=== PATIENT | female | born 1945 | race Caucasian/White ===

== ENCOUNTER 2021-12-10 20:25 | Observation (INO) | payer MEDICARE, OTHER ==
[~2021-12-10] VITALS: Ht 170.2 cm; Wt 61.0 kg
[~2021-12-10 20:25] MED LIST: AMLODIPINE5 MG PO; ASPIRIN LOW DOS81 M2 PO; CALCIUM 600+D31 TA1 PO; CRESTOR5 MG PO; LOSARTAN POTASS50 MG PO; VITAMIN D31000 UNI1 PO; [UNRECOGNIZED DRUG - CODE] PO
[2021-12-10 21:03] LABS: IMMATURE GRANULOCYTES 0.2 % (0.0-5.0); MEAN CELL VOLUME 102.9 fL CALC (80.0-100.0); MEAN CORPUSCULAR HGB 33.4 pG CALC (26.0-32.0); MEAN CORPUSCULAR HGB CONC 32.5 g/dL CAL (32.0-36.0); NEUT# 3.18 thou/uL (2.00-7.15); RED BLOOD COUNT 3.11 mill/uL (4.20-5.60); RED CELL DISTRI WIDTH 12.3 % (11.5-15.5)
[2021-12-10 21:09] LABS: HEMOGLOBIN 10.4 g/dl (12.0-16.0)
[2021-12-10 21:21] LABS: ALBUMIN 4.3 g/dL (3.2-5.0); ALKALINE PHOSPHATASE 63 u/l (38-126); AMYLASE 142 u/l (30-110); ANION GAP 13 (6-22 (CALC)); BILIRUBIN, TOTAL 0.3 mg/dL (0.0-1.4); BUN 26 mg/dL (8-23); BUN/CREATININE RATIO 16 (12-20 (CALC)); CARBON DIOXIDE 23 mmol/l (22-30); CHLORIDE 109 mmol/l (95-108); CREATININE 1.6 mg/dL (0.5-1.0); ETHYL ALCOHOL 0 mg/dl (0-30); GFR FOR AFR.AMER. 38 ML/MIN (>=60 (CALC)); GFR OTHER RACES 31 ML/MIN (>=60 (CALC)); LIPASE 373 u/l (23-300); MAGNESIUM 2.1 mg/dL (1.6-2.3); POTASSIUM 3.8 mmol/l (3.5-5.1); SGOT/AST 27 u/l (9-36); SODIUM 141 mmol/l (137-146); TOTAL PROTEIN 6.8 g/dL (6.3-8.2)
[2021-12-10 21:24] LABS: ACT PARTIAL THROMBO TIME 18.5 SECONDS (20.0-32.5); INTERNATIONAL NORMALIZED RATIO 0.9 RATIO (0.7-1.3); PROTHROMBIN TIME 9.8 SECONDS (9.0-12.5)
[2021-12-10 21:31] VITALS: BP 127/81
[2021-12-10 23:39] VITALS: BP 134/64
[2021-12-11] VITALS: BP 125/56
[2021-12-11 00:32] LABS: URINE BILIRUBIN - DIPSTICK NEGATIVE (NEGATIVE); URINE BLOOD DIPSTICK NEGATIVE (NEGATIVE); URINE COLOR YELLOW; URINE GLUCOSE - DIPSTICK NEGATIVE (NEGATIVE); URINE KETONE TRACE mg/dL (NEGATIVE); URINE LEUK ESTERASE NEGATIVE (NEGATIVE); URINE NITRITE - DIPSTICK NEGATIVE (Negative); URINE PH 6.5 (4.5-8.0); URINE PROTEIN - DIPSTICK NEGATIVE (NEG-TRACE); URINE UROBILINOGEN - DIPSTICK 0.2 E.U./dL (0.2)
[2021-12-11 00:45] VITALS: BP 128/68
[2021-12-11 05:01] VITALS: BP 124/53
[2021-12-11 05:23] LABS: HEMATOCRIT 33.9 % (37.0-47.0); IMMATURE GRANULOCYTES 0.3 % (0.0-5.0); MEAN CELL VOLUME 103.7 fL CALC (80.0-100.0); MEAN CORPUSCULAR HGB 33.6 pG CALC (26.0-32.0); MEAN CORPUSCULAR HGB CONC 32.4 g/dL CAL (32.0-36.0); NEUT# 4.68 thou/uL (2.00-7.15); RED BLOOD COUNT 3.27 mill/uL (4.20-5.60); RED CELL DISTRI WIDTH 12.4 % (11.5-15.5)
[2021-12-11 05:46] LABS: ALBUMIN 3.6 g/dL (3.2-5.0); BILIRUBIN, TOTAL 0.3 mg/dL (0.0-1.4); CHOLESTEROL HDL RATIO 3.1 (<4.4 (CALC)); CREATININE 1.5 mg/dL (0.5-1.0); MAGNESIUM 2.1 mg/dL (1.6-2.3); POTASSIUM 4.7 mmol/l (3.5-5.1)
[2021-12-11 06:38] VITALS: BP 121/53
[2021-12-11 10:45] VITALS: BP 135/57
== END 2021-12-11 13:36 | disposition home or self-care (01) ==
LOC: ED 20:25 → ED-I 23:25 → ED 23:40 → MS2 23:41
PROVIDERS: ADMIT Hospitalist; ATTEND Hospitalist
DX: R55 Syncope and collapse (principal); R11.2 Nausea with vomiting, unspecified; N17.9 Acute kidney failure, unspecified; I95.9 Hypotension, unspecified; I10 Essential (primary) hypertension; I12.9 Hypertensive chronic kidney disease with stage 1 through stage 4 chronic kidney disease, or unspecified chronic kidney disease; N18.30 Chronic kidney disease, stage 3 unspecified; N63.0 Unspecified lump in unspecified breast; Z20.822 Contact with and (suspected) exposure to COVID-19
CPT/HCPCS: G0378; S0164